=== PATIENT | male | born 1950 | race Caucasian/White ===

== ENCOUNTER 2025-08-13 09:33 | Day surgery (SDC) | payer MEDICARE, BC ==
[~2025-08-13] VITALS: Ht 167.6 cm; Wt 71.4 kg
[2025-08-13] VITALS (8 sets, daily range): BP systolic 121–167; BP diastolic 76–93; PULSE 73–89; RESP 14–16; TEMP 98.4; O2SAT 96–100
[~2025-08-13 09:33] MED LIST: DENO60SY2 SQ; EPIN0.3A3 SQ; FLONASE; LEVO50TA8 PO; OLME20TA69 PO; OMEP20CA16 PO; PRAV40TA17 PO; TRIAMCINOLONE TOP; [UNRECOGNIZED DRUG - CODE] PO; simethicone 40mg/0.6ml oral drops 15ml PO ONE
[2025-08-13] MEDS: ringers solution, lacted 1,000 ML IV SCH (10:57)
[2025-08-13] MEDS ORDERED: propofol inj 20 ML IV ONE (12:26)
== END 2025-08-13 13:25 | disposition home or self-care (01) ==
LOC: PRE-OP 09:33
PROVIDERS: ATTEND Internal Medicine Gastroenterology
DX: Z12.11 Encounter for screening for malignant neoplasm of colon (principal); E11.9 Type 2 diabetes mellitus without complications; E78.00 Pure hypercholesterolemia, unspecified; E03.9 Hypothyroidism, unspecified; I12.9 Hypertensive chronic kidney disease with stage 1 through stage 4 chronic kidney disease, or unspecified chronic kidney disease; E11.22 Type 2 diabetes mellitus with diabetic chronic kidney disease; N18.9 Chronic kidney disease, unspecified; K21.9 Gastro-esophageal reflux disease without esophagitis; K21.01 Gastro-esophageal reflux disease with esophagitis, with bleeding; M81.0 Age-related osteoporosis without current pathological fracture; M19.90 Unspecified osteoarthritis, unspecified site; N52.9 Male erectile dysfunction, unspecified; Z86.0100 Personal history of colon polyps, unspecified; Z88.5 Allergy status to narcotic agent; Z87.891 Personal history of nicotine dependence
CPT/HCPCS: A4615; A4620; G0105; J2704; J7120; 45378